=== PATIENT | male | born 1980 | race Hispanic/Latino ===

== ENCOUNTER 2023-02-15 15:53 | Emergency (ER) | payer BC, OTHER ==
[~2023-02-15] VITALS: Ht 188 cm; Wt 131.1 kg
[2023-02-15 16:33] LABS: BASOPHILS # (AUTO) 0.02 K/uL (0.00-0.20); BASOPHILS % (AUTO) 0.3 % (0.0-5.0); EOSINOPHILS % (AUTO) 1.3 % (0.0-8.0); HEMATOCRIT 40.8 % (42-54); IMMATURE GRANULOCYTE ABSOLUTE 0.05 K/uL (0-1); LYMPHOCYTES # (AUTO) 0.9 K/uL (1.0-4.8); LYMPHOCYTES % (AUTO) 11.4 % (21.0-51.0); MEAN CORPUSCULAR HEMOGLOBIN 28.4 pg (27.0-33.0); MEAN CORPUSCULAR HGB CONC 34.1 g/dL (32.0-36.0); MEAN CORPUSCULAR VOLUME 83.4 fL (79-99); MONOCYTES # (AUTO) 0.4 K/uL (0.1-1.0); MONOCYTES % (AUTO) 5.6 % (3.0-13.0); NEUTROPHILS # (AUTO) 6.2 K/uL (1.8-7.7); NEUTROPHILS % (AUTO) 80.8 % (40.0-77.0); PLATELET COUNT (AUTO) 212 K/uL (130-400); RED BLOOD CELL COUNT(AUTO) 4.89 MIL/uL (4.50-6.20); RED CELL DISTRIBUTION WIDTH 13.6 % (11.0-15.5); WHITE BLOOD COUNT (AUTO) 7.7 K/uL (4.8-10.8)
[2023-02-15 16:40] LABS: ADD UA MICROSCOPIC YES; APPEARANCE,URINE CLEAR (CLEAR); BILIRUBIN,URINE NEGATIVE (NEGATIVE); COLOR,URINE LIGHT-YELLOW (YELLOW); GLUCOSE, URINE (UA) >=1000 mg/dL (NEGATIVE); KETONES,URINE NEGATIVE (NEGATIVE); LEUKOCYTE ESTERASE ,URINE NEGATIVE Leu/uL (NEGATIVE); NITRATE,URINE NEGATIVE (NEGATIVE); OCCULT BLOOD,URINE NEGATIVE (NEGATIVE); PH,URINE 5.5 (5.0-8.0); PROTEIN,URINE 30 mg/dL (NEGATIVE); UROBILINOGEN,URINE 0.2 mg/dL (0.2-1.0)
[2023-02-15 16:41] LABS: MUCUS,URINE RARE LPF (None Seen); RBC,URINE 0-1 /HPF (0-1); SQUAMOUS EPITHELIAL CELL,UR RARE /HPF (0-2); WBC,URINE 0-1 /HPF (0-1)
[2023-02-15 16:50] LABS: ALBUMIN 3.3 g/dL (3.5-5.0); BILIRUBIN,TOTAL 1.1 mg/dL (0.2-1.0); CREATININE 1.2 mg/dL (0.5-1.5); TOTAL PROTEIN, SERUM 7.1 g/dL (6.0-8.3)
[2023-02-15] MEDS ORDERED: PANTOPRAZOLE 40 MG/VIAL IVP ONE (17:00)
[2023-02-15] MEDS ORDERED: NITROGLYCERIN 1GM OINT 1 INCH/1GM TD ONE (17:00)
[2023-02-15] MEDS ORDERED: ASPIRIN 325MG TAB PO ONE (17:00)
[2023-02-15 17:04] LABS: AMPHET/METH SCREEN,URINE NEGATIVE (NEGATIVE); BARBITURATE SCREEN, URINE NEGATIVE (NEGATIVE); BENZODIAZEPINES SCREEN,URINE NEGATIVE (NEGATIVE); CANNABINOID SCREEN,URINE NEGATIVE (NEGATIVE); COCAINE SCREEN,URINE NEGATIVE (NEGATIVE); OPIATE SCREEN,URINE NEGATIVE (NEGATIVE); PHENCYCLIDINE SCREEN,URINE NEGATIVE (NEGATIVE)
[2023-02-15] MEDS ORDERED: 0.9%NACL 1000ML 1,000 ML IV ONE (17:30)
[2023-02-15] MEDS ORDERED: INSULIN HUMULIN R 100 UNIT/ML 3ML IV ONE (17:30)
[2023-02-15] MEDS ORDERED: 0.9%NACL 1000ML 1,000 ML IV SCH (18:00)
[2023-02-15] MEDS ORDERED: IOHEXOL 350 MG/ML 100ML INFUS..BTL IV ONE (18:08)
[2023-02-15 18:30] LABS: INR < 0.93 (0.85-1.15); PROTHROMBIN TIME 10.7 SEC (9.6-11.6)
[2023-02-15] MEDS ORDERED: ACETAMINOPHEN 325 MG TAB PO PRN (18:30)
[2023-02-15] MEDS ORDERED: ONDANSETRON 4MG INJ IVP PRN (18:30)
[2023-02-15 18:42] LABS: HEMOGLOBIN A1C 11.7 % (4.0-6.0)
[2023-02-15 18:51] LABS: THYROID STIMULATING HORMONE 1.55 uIU/mL (0.36-3.74)
[2023-02-15] MEDS ORDERED: INSULIN HUMULIN R 100 UNIT/ML 3ML SQ SCH (19:00)
[2023-02-15] MEDS ORDERED: PANTOPRAZOLE 40 MG TAB DR PO SCH (19:00)
[2023-02-15] MEDS ORDERED: MORPHINE 2 MG SYG IVP PRN (19:00)
[2023-02-15] MEDS: ESMOLOL HCL 2,500 MG in 0.9% NACL 250ML 250 ML IV SCH ×2 (19:56→22:00)
[2023-02-15 20:07] LABS: MYOGLOBIN 406 ng/mL (10-92)
[2023-02-15 20:19] LABS: CREATINE KINASE, TOTAL 845 U/L (21-232)
[2023-02-15] MEDS ORDERED: ATORVASTATIN 40 MG TABLET PO SCH (21:00)
[2023-02-15] MEDS ORDERED: NITROGLYCERIN 50MG/D5W 250ML 1 BOT ONE (21:46)
[2023-02-15] MEDS ORDERED: NITROGLYCERIN 50MG/D5W 250ML 250 BOT IV SCH (22:00)
[2023-02-15 23:55] VITALS: BP 116/73; PULSE 91; RESP 14; O2SAT 98
[2023-02-16] MEDS ORDERED: ASPIRIN 81 MG EC TAB PO SCH (09:00)
== END 2023-02-16 00:58 | disposition short-term general hospital (02) ==
LOC: EDH 15:53
DX: I24.9 Acute ischemic heart disease, unspecified (principal); I10 Essential (primary) hypertension; E11.9 Type 2 diabetes mellitus without complications; E78.00 Pure hypercholesterolemia, unspecified; E66.9 Obesity, unspecified; Z79.82 Long term (current) use of aspirin; Z90.49 Acquired absence of other specified parts of digestive tract; Z95.1 Presence of aortocoronary bypass graft
CPT/HCPCS: 99291; 74174; 96365; 71275; 71045; 96375; 96366; 96361; 80061; 83036; 84443; 82550; 83735; 83874; 84484 ×2; 80053; 80305; 85025; 85610; 85730; 82948; 81001; 36415; 96372; 99292; 93005 ×2; J1815 ×2; J7030; J3490 ×4; C9113; J7050 ×3; Q9967

== ENCOUNTER → 2023-08-13 | Outpatient (CLI) | payer BC | END | disposition home or self-care (01) | LOC: SHCH 14:27 | PROVIDERS: ATTEND Internal Medicine Cardiovascular Disease | DX: I25.10 Atherosclerotic heart disease of native coronary artery without angina pectoris (principal); R01.1 Cardiac murmur, unspecified | CPT/HCPCS: 93306 ==